=== PATIENT | male | born 1935 | race Caucasian/White ===

== ENCOUNTER 2021-06-16 08:24 | Observation (INO) | payer MEDICARE, SELFPAY ==
[2021-06-16] VITALS (11 sets, daily range): BP systolic 127–160; BP diastolic 63–77; PULSE 70–83; RESP 16–20; TEMP 36.3–36.8; O2SAT 82–100; BMI 28.8
--- NOTE | ~2021-06-16 | XR_ITS ---
EXAMINATION: XR chest 1V portable INDICATION: Lower limb weakness TECHNIQUE: Portable AP chest at 0847 hours COMPARISON: None available FINDINGS: Minimal airspace opacities of the left lung base likely reflect atelectasis. There is no pl eural effusion or pneumothorax. The heart size is normal. Changes of prior cardiac valve surgery are noted. IMPRESSION: 1. No acute cardiopulmonary abnormality. Reviewed, dictated and finalized at location A.
--- NOTE | ~2021-06-16 | US_ITS ---
EXAMINATION: US carotid duplex BI DATE: 06/16/2021 12:54 INDICATION: Left hemiparesis TECHNIQUE: Grayscale, color Doppler, and pulsed Doppler images of the cervical carotid arteries were obtained. The degree of vessel stenosis is placed in one of the following categories: normal, <50%, 5 0-69%, >=70% but less than near-occlusion, near-occlusion, or total occlusion. Note that percent sten osis relative to normal distal artery lumen diameter is indirectly measured from velocity measurement s as described by Willy, et al. Radiology 2003; 229:340-346. COMPARISON: None. FINDINGS: RIGHT: The right common carotid artery (CCA) peak systolic velocity (PSV) is 82 cm/s. The right internal car otid artery (ICA) PSV is 91 cm/s. The right ICA end-diastolic velocity (EDV) is 23 cm/s. The right IC A/CCA PSV ratio is 1.1. Grayscale and color Doppler images yield an estimate of <50% diameter reducti on from plaque in the ICA. The external carotid artery (ECA) PSV is 116 cm/s. There is antegrade flow in the right vertebral artery. LEFT: The left CCA PSV is 78 cm/s. The left ICA PSV is 74 cm/s. The left ICA EDV is 20 cm/s. The left ICA/C CA PSV ratio is 0.9. Grayscale and color Doppler images yield an estimate of <50% diameter reduction from plaque in the ICA. The ECA PSV is 95 cm/s. There is antegrade flow in the left vertebral artery. IMPRESSION: 1. <50% stenosis from minimal plaque in the right internal carotid artery. 2. <50% stenosis from minimal plaque in the left internal carotid artery. Reviewed, dictated and finalized at location A.
--- NOTE | ~2021-06-16 | CT_ITS ---
EXAMINATION: CT brain wo con INDICATION: Left arm weakness COMPARISON: None TECHNIQUE: Standard unenhanced head CT. The dose-length product (DLP) was 605.33 mGy-cm. The mA was a djusted according to patient size. Iterative reconstruction technique was employed. FINDINGS: There is no acute intraparenchymal hemorrhage. No evidence of mass lesion. No evidence of a cute infarction. There is mild periventricular and subcortical hypodensity probably related to small vessel ischemic disease. There is mild prominence of the sulci and ventricles related to cerebral atr ophy. Intracranial calcified cerebral atherosclerosis is noted. There are no extra-axial collections. There is no mass effect or midline shift. Changes in the globes are likely from ocular lens surgery. The visualized sinuses and mastoid air cells are well aerated. IMPRESSION: 1. No acute intracranial abnormality. 2. Age related findings. Reviewed, dictated and finalized at location A.
--- NOTE | ~2021-06-16 | MR_ITS ---
EXAMINATION: MR brain/brain stem wo/w con EXAM DATE: 06/17/2021 11:09 INDICATION: Left-sided hemiparesis. Transient ischemic attack. TECHNIQUE: Magnetic resonance imaging (MRI) of the brain/brain stem obtained without contrast. Sagit nicolás T1, axial diffusion, gradient echo (T2*), T1, T2, FLAIR sequences obtained. Patient was then inj ected with 19 cc intravenous Multihance contrast. Axial and coronal postcontrast T1 weighted sequence s obtained. Correlation is made to CTA brain from yesterday. FINDINGS: There are no areas of restricted diffusion to suggest acute infarction. There is no acute hemorrhage seen on the T2*, a hemosiderin sensitive sequence. No intraparenchymal brain mass lesion. There is mild periventricular and subcortical T2/FLAIR signal hyperintensity, nonspecific but probab ly related to small vessel ischemic disease (microangiopathy). There is mild prominence of the sulc i and ventricles related to cerebral atrophy. There are no extra-axial collections. Flow voids are seen in the cerebral arteries on the T2-weighted sequences consistent with their expected patency. The orbits are unremarkable. Soft tissue is unremarkable. IMPRESSION: 1. No acute intracranial findings. 2. Mild age related findings. Reviewed, dictated and finalized at location B.
--- NOTE | ~2021-06-16 | CT_ITS ---
EXAMINATION: CTA brain carotid EXAM DATE: 06/16/2021 12:19 INDICATION: Left-sided hemiparesis. TECHNIQUE: Spiral CTA of the carotid arteries was performed with intravenous injection 100 cc of Omni paque 350. Axial, coronal, sagittal reformatted images reviewed. Additional reformatted images creat ed on dedicated 3-D workstation. NASCET comparable standard used to assess the degree of arterial st enosis. Spiral CT angiogram cerebral arteries performed with the same intravenous injection of contr ast. Source images of the brain CTA transferred to dedicated workstation for 3-D rotational image cre ation. Coronal, sagittal maximum intensity pixel images also reviewed. The dose-length product (DLP ) for this examination was 1285.73 mGy-cm. The exposure was tailored according to patient size, and iterative reconstruction (ASIR) was used as additional dose reduction technique. Comparison is made to prior examination from head CT from earlier same date. FINDINGS: No carotid bulb plaque, 0% stenosis bilaterally. Mild bilateral carotid siphon arterial scl erosis. There is left-sided posterior communicating artery dominant posterior cerebral artery. The le ft vertebral artery is dominant. There is no carotid or vertebral basilar arterial dissection or fib romuscular dysplasia. There are no cerebral artery aneurysms. There is symmetric cerebral artery arbo rization. The sagittal, transverse and sigmoid sinuses enhance normally, no venous sinus thrombosis. Internal cerebral veins also enhance normally. Incidental Findings: There is right thyroid lobe nodule measuring 1.8 cm, could be the same nodule de scribed on an ultrasound in 2008. Sternotomy wires. Cervical spondylosis. IMPRESSION: 1. No acute carotid or intracranial findings. 2. Bilateral carotid 0% stenosis. Reviewed, dictated and finalized at location B.
--- NOTE | 2021-06-16 08:39 | ECG_ITS ---
SINUS RHYTHM DELAYED PRECORDIAL R/S TRANSITION MINIMAL Q WAVES- INFERIOR LEADS BORDERLINE ST-T WAVE ABNORMALITY- HIGH LATERAL LEADS BASELINE ARTIFACT- I, II, AVR, AVL, AVF, V1-V6 BORDERLINE ECG Electronically Signed On 06-16-2021 8:51:12 CDT by Raul PERAZA
--- NOTE | 2021-06-16 08:47 | PC.NURSE ---
BLOOD GLUCOSE WAS 109 AT 08:47
[2021-06-16 08:52] LABS: Basophils Percent Auto 0.4 % (0.2-1.2); Eosinophils Absolute Auto 0.1 K/mm3 (0-0.3); Eosinophils Percent Auto 2.8 % (0-4.4); Hematocrit 42.9 % (42.0-52.0); Hemoglobin 14.2 g/dL (14.0-18.0); Immature Granulocyte Absolute 0.06 K/mm3 (0.00-0.031); Immature Granulocyte Percent A 1.2 % (0-0.5); Lymphocytes Absolute Auto 1.93 K/mm3 (0.9-3.2); Lymphocytes Percent Auto 37.9 % (18.3-44.2); Mean Corpuscular HGB Conc 33.1 g/dl (32-36); Mean Corpuscular Hemoglobin 31.8 pg (26-34); Mean Platelet Volume 11.6 fl (7.4-10.4); Monocytes Absolute Auto 0.5 K/mm3 (0.1-0.6); Neutrophils Absolute Auto 2.5 K/mm3 (1.3-6.7); Neutrophils Percent Auto 48.7 % (45.5-73.1); Platelet Count Result 196 k/mm3 (150-375); Red Blood Count 4.47 M/mm3 (4.6-6.20); Red Cell Distribution Width 11.8 % (11.5-14.5); White Blood Count 5.1 K/mm3 (4.5-10.0)
[2021-06-16 09:03] LABS: Anion Gap 15 mmol/L (8-16); Blood Urea Nitrogen 26 mg/dL (9-20); Carbon Dioxide 21 mmol/L (22-30); Chloride 106 mmol/L (98-107); Estimated CRCL calculation 52 ml/min; Estimated Glomerular Filt Rate 58; Glucose 115 mg/dL (65-110); Potassium 4.2 mmol/L (3.4-5.0); Sodium 142 mmol/L (137-145)
[2021-06-16 09:10] LABS: Partial Thromboplastin Time 28.8 SECONDS (22.3-36.8); Prothrombin Time 12.9 Seconds (11.1-14.7)
[2021-06-16 09:15] LABS: Troponin I < 0.012 ng/mL (0.000-0.034)
[2021-06-16 09:22] LABS: Glucose Point of Care 109 mg/dl (65-105)
--- NOTE | 2021-06-16 11:05 | ED.GENADULT ---
HPI - General Adult General Chief complaint: Neuro Symptoms/Deficit Stated complaint: I think I'm having a stroke Time Seen by Provider: 06/16/21 09:53 History of Present Illness HPI narrative: Patient 85-year-old gentleman who presents the emergency department chief complaint of TIA symptoms. The patient reports that over the last several days has been having intermittent episodes where he develops weakness usually in extremity patient states that last for about an hour or so and then he takes his aspirin and then it starts to improve. Patient states he saw his primary care physician in the office and they recommended that the next time he has an episode he should go to the emergency department. Patient states this morning he woke up at 7:00 and at 730 he started having weakness in his left arm. Patient states that it has been rapidly improving and states that his strength is almost back to normal. The patient states that he had no paresthesias reports no weakness in his leg reports no dysarthria or problems with his speech. 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 Related Data Allergies Allergy/AdvReac Type Severity Reaction Status Date / Time No Known Allergies Allergy Verified 06/16/21 08:37 Review of Systems Review of Systems: A 10 system review of systems was completed on the patient and is negative except for what is stated in the HPI. Nursing and ancillary documentation was reviewed. [facility] Family History Family History Father Family history of coronary artery disease, Onset Age: 55 Patient's father is , Onset Age: 55 Social History Social History Smoking status: Former smoker Smoking end date: 10/02/1955 Alcohol intake: current Exam Narrative: GENERAL: Well-appearing, well-nourished, and in no acute distress. HEAD: Normocephalic, atraumatic. EYES: PERRLA and EOMI. ENT: Nares clear, no rhinorrhea or epistaxis. Mucous membranes moist. NECK: Supple. CHEST: Clear to auscultation. No respiratory distress. HEART: Regular rate and rhythm. No murmur heard. Normal peripheral pulses. ABDOMEN: Soft, nontender, nondistended, normal active bowel sounds. EXTREMITIES: Normal range of motion. No edema. SKIN: Warm, dry, no rash. NEURO: No focal deficits. Alert and oriented x3. PSYCH: Normal mood and affect. Course Vital Signs Vital signs: Vital Signs Temperature 36.3 C L 06/16/21 08:30 Pulse Rate 80 06/16/21 08:30 Respiratory Rate 16 06/16/21 08:30 Blood Pressure 149/76 H 06/16/21 08:30 Pulse Oximetry 98 06/16/21 08:30 Temperature 36.3 C L 06/16/21 08:30 Pulse Rate 70 06/16/21 09:01 Respiratory Rate 17 06/16/21 09:01 Blood Pressure 139/72 06/16/21 09:01 Pulse Oximetry 98 06/16/21 08:47 Medical Decision Making Vital Signs Vital Signs: Vital Signs Temperature 36.3 C L 06/16/21 08:30 Pulse Rate 80 06/16/21 08:30 Respiratory Rate 16 06/16/21 08:30 Blood Pressure 149/76 H 06/16/21 08:30 Pulse Oximetry 98 06/16/21 08:30 Temperature 36.3 C L 06/16/21 08:30 Pulse Rate 70 06/16/21 09:01 Respiratory Rate 17 06/16/21 09:01 Blood Pressure 139/72 06/16/21 09:01 Pulse Oximetry 98 06/16/21 08:47 Lab Data Result diagrams: 06/16/21 08:43 06/16/21 08:43 Labs: Lab Results 06/16/21 06/16/21 06/16/21 Range/Units 08:43 08:43 08:43 WBC 5.1 (4.5-10.0) K/mm3 RBC 4.47 L (4.6-6.20) M/mm3 Hgb 14.2 (14.0-18.0) g/dL Hct 42.9 (42.0-52.0) % MCV 96.0 (80-100) fl MCH 31.8 (26-34) pg MCHC 33.1 (32-36) g/dl RDW 11.8 (11.5-14.5) % Plt Count 196 (150-375) k/mm3 MPV 11.6 H (7.4-10.4) fl Immature Gran % (Auto) 1.2 H (0-0.5) % Neut %
--- NOTE | 2021-06-16 17:11 | PM.IMHP ---
H&P: HPI History of Present Illness Date/Time: 06/16/21 17:11 this is a 85-year-old male patient who stated that he has a history of TIAs. The patient has increased his low-dose aspirin to a full dose aspirin. The patient stated over the last few days he has been having intermittent episodes where he develops weakness to the left extremity that last about an hour so and then it goes away specially after he takes his aspirin. The patient stated he had a previous episode approximately 1 week ago. One week ago he saw his primary care doctor and he recommended that the next time he has an episode to come to the emergency room. The patient woke up around 7 or 730 this morning was having weakness to his left arm. This symptoms have now resolved and is essentially back to his baseline. The patient no longer has any weakness to that left side. He is able to move that arm without any difficulty. His speech is clear. 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 Patient's blood sugars 115 troponin is negative. Carotid Dopplers was read as.1. <50% stenosis from minimal plaque in the right internal carotid artery. 2. <50% stenosis from minimal plaque in the left internal carotid artery . Head neck CTA was read as no acute carotid or intracranial findings. Bilateral carotid 0% stenosis. Head CT is read as no acute intracranial abnormality. age-related findings The patient is being admitted to observation status on the date of service of 06/16/2021. Chief Complaint: Left arm weakness Review of Systems Review of Systems: All systems reviewed & are unremarkable except as noted in HPI and below Constitutional: Constitutional: Reports as per HPI and Reports no additional constitutional complaints Eyes: Eyes: Reports as per HPI and Reports no additional eye complaints ENT: Reports system reviewed and no additional complaints, except as documented and Reports Normal hearing present Cardiovascular: Cardiovascular: Reports no additional cardiovascular complaints Respiratory: Respiratory: Reports no additional respiratory complaints and Reports no additional respiratory complaints Gastrointestinal: Gastrointestinal: Reports as per HPI and Reports no additional gastrointestinal complaints Musculoskeletal: Musculoskeletal: Reports no additional musculoskeletal complaints Integumentary/Breasts: Skin/Breast: Reports system reviewed and no additional complaints, except as docu and Reports as per HPI Neurologic: Reports system reviewed and no additional complaints, except as documented, Reports as per HPI and Reports Normal hearing present Psychiatric: Psychiatric: Reports no additional psychiatric complaints and Reports as per HPI Endocrine: Endocrine: Reports no additional endocrine complaints Hematologic/Lymphatic: Hematologic/Lymphatic: Reports no additional hematologic/lymphatic complaints Allergic/Immunologic: Allergic/Immunologic: Reports no additional allergic/immunologic complaints PMFSH Past Medical History Medical History (Updated 06/16/21 @ 17:19 by Alina Hauser NP) BPH w/o urinary obs/LUTS Hypertension Mixed hyperlipidemia Surgical History Surgical History (Updated 06/16/21 @ 17:19 by Alina Hauser NP) H/O aortic valve replacement Biosynthetic bovine H/O hernia repair H/O repair of left rotator cuff History of cataract extraction with lens replacement Family History Family History (Updated 06/16/21 @ 17:21 by Alina Hauser NP) Father Family history of coronary artery disease, Onset Age: 55 Patient's father is , Onset Age: 55 Mother Dementia Social History Social History (Updated 06/16/21 @ 17:22 by Alina Hauser NP) Social History: The patient is retired from being a food quality tester. He worked for [employer]. His is the durable power insurance defense attorney for healthcare and
[2021-06-17] VITALS (8 sets, daily range): BP systolic 132–148; BP diastolic 63–76; PULSE 67–80; RESP 17–20; TEMP 36.3–36.7; O2SAT 95–96
--- NOTE | 2021-06-17 | ECHO_ITS ---
Patient Info Name: Nick Figueroa Age: 85 years : 1935 Gender: Male Ht: 72 in Wt: 229 lbs BSA: 2.32 m2 HR: 77 bpm BP: 151 / 77 mmHg Heart Rhythm: Sinus Rhythm Technical Quality: Good Exam Date: 06/17/2021 3:42 PM Exam Location: [facility] Pulmonary Exam Room: 240 Patient Status: Outpatient Admit Date: 06/16/2021 Staff Ordering Physician: Alina Hauser NP Wireless Field Technician: Criss Valdez RDCS Attending Provider: Butch Newell MD Referring Physician: Analisa MULLER; Exam Type: CA echo dop bubble study w con Study Info Indications - TIA S/P AVR Complete two-dimensional, color flow and Doppler transthoracic echocardiogram is performed with agitated saline. Summary 1. Left ventricular chamber dimension is normal. 2. Left ventricular systolic function is normal, estimated at 60-65%. 3. There is mildly increased left ventricular wall thickness. 4. The left ventricular diastolic function is grade I diastolic dysfunction. 5. Right atrial chamber dimension is mildly enlarged. 6. Left atrial chamber dimension is mildly enlarged. 7. Within the left atrium, there is a small echogenicity seen. It is not clearly attached to the mitral valve but not also clearly delineated as to its origin or relevance. Consider AGATHA for clarification. 8. The mitral valve has thickened leaflets. 9. There is mild tricuspid valve regurgitation. Left Ventricle Left ventricular chamber dimension is normal. Left ventricular systolic function is normal, estimated at 60-65%. There is mildly increased left ventricular wall thickness. The left ventricular diastolic function is grade I diastolic dysfunction. Right Ventricle Right ventricular chamber dimension is normal. Right ventricular systolic function is normal. Left Atria Left atrial chamber dimension is mildly enlarged. Within the left atrium, there is a small echogenicity seen. It is not clearly attached to the mitral valve but not also clearly delineated as to its origin or relevance. Consider AGATHA for clarification. Right Atria Right atrial chamber dimension is mildly enlarged. Atrial Septum Intact interatrial septum visualized by color flow and agitated saline imaging. Aortic Valve The not well visualized prosthetic aortic valve is not well visualized. There is trace regurgitation of the not well visualized prosthetic aortic valve. Bioprosthetic Aortic valve gradients are normal. Pulmonic Valve The pulmonic valve is normal. There is no pulmonic valve stenosis. There is trace pulmonic regurgitation. Mitral Valve The mitral valve has thickened leaflets. There is no mitral valve stenosis. There is trace mitral valve regurgitation. Tricuspid Valve The tricuspid valve leaflets are normal. There is no significant tricuspid valve stenosis. There is mild tricuspid valve regurgitation. No pulmonary hypertension, estimated pulmonary arterial systolic pressure is 23 mmHg. Pericardium/Pleural The pericardium appears normal. There is trivial pericardial effusion. Inferior Vena Cava Normal inferior vena cava with <50% collapse upon inspiration consistent with elevated right atrial pressure, 10 mmHg. Aorta The aortic root size at the sinus of Valsalva is normal. Left Ventricular Outflow Tract Name Value Normal LVOT 2D -
[2021-06-17] MEDS: LEVOTHYROXINE SODIUM 150 MCG TABLET PO (05:53)
[2021-06-17 06:00] LABS: Lactic Acid Reflex 0.7 mmol/L (0.7-2.1)
[2021-06-17 06:05] LABS: Alanine Aminotransferase 21 U/L (4-50); Albumin Level 4.1 g/dL (3.5-5.1); Alkaline Phosphatase 48 U/L (38-126); Anion Gap 8 mmol/L (8-16); Aspartate Amino Transferase 23 U/L (17-59); Bilirubin,Total 0.6 mg/dL (0.2-1.3); Blood Urea Nitrogen 25 mg/dL (9-20); Calcium 9.2 mg/dL (8.4-10.2); Carbon Dioxide 25 mmol/L (22-30); Chloride 107 mmol/L (98-107); Estimated CRCL calculation 47 ml/min; Estimated Glomerular Filt Rate 58; Glucose 100 mg/dL (65-110); Lactate Dehydrogenase 433 U/L (313-618); Magnesium 2.2 mg/dL (1.6-2.3); Potassium 3.9 mmol/L (3.4-5.0); Sodium 140 mmol/L (137-145)
[2021-06-17] MEDS: ATORVASTATIN 20 MG TABLET BY MOUTH (08:55)
[2021-06-17] MEDS: gemfibroziL 600 MG TABLET PO ×2 (08:56→17:08)
[2021-06-17] MEDS: lisinopriL 20 MG TABLET 40 MG PO (08:56)
[2021-06-17] MEDS: TAMSULOSIN HCL 0.4 MG CAPSULE 0.8 MG PO ×2 (08:56→17:08)
[2021-06-17] MEDS: amLODIPine BESYLATE 5 MG TABLET 10 MG BY MOUTH (09:56)
--- NOTE | 2021-06-17 10:57 | WPDNEURCNPN ---
Assessment and Plan Additional Plan considering history and symptomatology possibility of TIA likely Doppler study with the bubble study has been ordered further recommendations made accordingly Consult date: 06/17/21 Time Seen: 10:00 HPI: Nick Figueroa is a 85 year old male 85 years old right-handed male has been admitted to [facility] for the possibility of TIA over the last few days he has been experiencing intermittent episodes of the weakness of left extremity lasting for anywhere about an hour and then going awake he takes aspirin which she has increased by himself to full dose from the low-dose aspirin he had a previous episode approximately 1 week ago when he saw his primary care physician who recommended that if he has another episode come to the emergency room around 730 in the morning he was having weakness of his left upper extremity with subsequently resolved to baseline his speech was clear he does have a history of by a synthetic wall replacement that is bovine and is not on any anticoagulation therapy his blood sugar was reportedly 115 and the carotid studies have been read less than 50% stenosis with minimal plaque formation in the right internal carotid artery but head neck CTA was read without any abnormalities bilateral carotid 0% stenosis, additionally he does have a history of benign prostatic hypertrophy, hypertension and mixed hyperlipidemia in addition to the positive history of aortic valve replacement with by a synthetic bovine valve hernia repair left rotator cuff repair and cataract extraction Review of Systems Review of Systems: All systems reviewed & are unremarkable except as noted in HPI and below PMFSH Past Medical History Medical History BPH w/o urinary obs/LUTS Hypertension Mixed hyperlipidemia Surgical History Surgical History H/O aortic valve replacement Biosynthetic bovine H/O hernia repair H/O repair of left rotator cuff History of cataract extraction with lens replacement Family History Family History Father Family history of coronary artery disease, Onset Age: 55 Patient's father is , Onset Age: 55 Mother Dementia Social History Social History Social History: The patient is retired from being a food preparation worker. He worked for [employer]. His is the durable power golf teacher for healthcare and the patient is full code. The patient has 2 children. Occasional alcohol. No tobacco or illicit drugs. Smoking status: Never smoker Smoking end date: 10/02/1955 Alcohol intake: current Drinks per week: 4 Substance use: never Spiritual care concerns: No Meds Home Medications and Allergies Home Medications Medication Instructions Recorded Confirmed Type tamsulosin 0.4 mg capsule 0.8 mg PO BID #180 cap 12/10/19 06/16/21 Rx amlodipine 10 mg tablet See Rx Instructions .ROUTE 08/24/20 06/16/21 Rx .COMPLEX #90 tablet gemfibrozil 600 mg tablet 600 mg PO BID #180 tablet 04/08/21 06/16/21 Rx levothyroxine 150 mcg tablet 150 mcg PO DAILY #90 tablet 04/22/21 06/16/21 Rx lisinopril 40 mg tablet 40 mg PO DAILY #90 tablet 05/24/21 06/16/21 Rx atorvastatin 20 mg tablet See Rx Instructions .ROUTE 06/14/21 06/16/21 Rx .COMPLEX #90 tablet aspirin 650 mg PO BID 06/16/21 06/16/21 History coQ10 (ubiquinol) 100 mg PO BID 06/16/21 06/16/21 History Allergies Allergy/AdvReac Type Severity Reaction Status Date / Time No Known Allergies Allergy Verified 06/16/21 08:37 Vital Signs Vital Signs - 24 hr 06/16/21 13:30 06/16/21 14:32 06/16/21 15:02 Temperature Pulse Rate 71 83 75 Respiratory Rate 16 17 20 Blood Pressure 132/76 148/75 H 135/63 Pulse Oximetry 98 82 L 95 06/16/21 16:30 06/16/21 17:15 06/16/21 18:00 Temperature 36.8 C 36.3 C L Pulse Rat
--- NOTE | 2021-06-17 16:48 | P.PNIM_ITS ---
Progress Note: A&P Assessment and Plan (1) Brain TIA: Code(s): G45.9 - Transient cerebral ischemic attack, unspecified Status: Acute Assessment and Plan: * Patient has had symptoms the past * CT of the brain shows nothing acute * Brain MRI shows nothing acute put age-related findings * Neurology consult thank you for your recommendations * Echo Doppler did show echogenicities in the left atrium * Cardiac consult syncope recommendations * Carotid ultrasound showed less than 50% stenosis * Consider adding anticoagulation prior to discharge (2) Mixed hyperlipidemia: Code(s): E78.2 - Mixed hyperlipidemia Status: Chronic Assessment and Plan: * Continue with atorvastatin * Cholesterol 157, triglycerides 166, LDL 80, HDL 49, VLDL 28 (3) BPH w/o urinary obs/LUTS: Code(s): N40.0 - Benign prostatic hyperplasia without lower urinary tract symptoms Status: Chronic Assessment and Plan: * Continue with tamsulosin * Monitor urine output * Consider bladder scan if needed (4) Hypertension: Code(s): I10 - Essential (primary) hypertension Status: Chronic Assessment and Plan: * Current blood pressure 132/63 * Continue with lisinopril and amlodipine * Trend blood pressure * Adjust medications as needed (5) Hypothyroidism (acquired): Code(s): E03.9 - Hypothyroidism, unspecified Status: Chronic Assessment and Plan: * Continue with levothyroxine * TSH 2.5 (6) S/P aortic valve replacement: Code(s): Z95.2 - Presence of prosthetic heart valve Status: Acute Assessment and Plan: * This is a biosynthetic bovine * not on any anticoagulation. * Could possibly need anticoagulation upon discharge (7) Chronic kidney disease, stage II (mild): Code(s): N18.2 - Chronic kidney disease, stage 2 (mild) Status: Chronic Assessment and Plan: * Current BUN and creatinine 25/1.2 * Down since admission * At baseline * Continue to trend Time Spent With Patient Time with patient: Greater than 35 minutes Subjective Date/time seen: 06/17/21 16:48 Interval history: Patient 85-year-old male who is here for stroke-like symptoms. Patient stated that he feels better today he has had no episodes and he feels like play golf or mow the grass. He denies she chest pain, shortness of breath, weakness, fatigue, nausea, vomiting, abdominal pain, sweats fevers or chills. I talked to patient about not taking 650 mg of aspirin b.i.d. which he stated he started doing on his own. MRI of the brain came back with no acute findings or chronic findings. Carotids came back with less than 50% stenosis. And echo did show abnormality in the mitral valve cardiology is consulted for possible AGATHA. Review of Systems Review of Systems: All systems reviewed & are unremarkable except as noted in HPI and below Exam Const: General: cooperative, healthy appearing, comfortable, no acute distress, well developed, alert, awake and Physically active Nutritional Appearance: average body habitus and well nourished Orientation/consciousn ess: oriented to person, oriented to place, oriented to time and patient oriented x3 Limitations: no limitations HENMT: Head: normal to inspection, No palpable skull fracture present, normocephalic and atraumatic Ears: hearing grossly normal bilaterally and external ears normal General
--- NOTE | 2021-06-17 16:48 | PM.IMPN ---
Progress Note: A&P Assessment and Plan (1) Brain TIA: Code(s): G45.9 - Transient cerebral ischemic attack, unspecified Status: Acute Assessment and Plan: Patient has had symptoms the past CT of the brain shows nothing acute Brain MRI shows nothing acute put age-related findings Neurology consult thank you for your recommendations Echo Doppler did show echogenicities in the left atrium Cardiac consult syncope recommendations Carotid ultrasound showed less than 50% stenosis Consider adding anticoagulation prior to discharge (2) Mixed hyperlipidemia: Code(s): E78.2 - Mixed hyperlipidemia Status: Chronic Assessment and Plan: Continue with atorvastatin Cholesterol 157, triglycerides 166, LDL 80, HDL 49, VLDL 28 (3) BPH w/o urinary obs/LUTS: Code(s): N40.0 - Benign prostatic hyperplasia without lower urinary tract symptoms Status: Chronic Assessment and Plan: Continue with tamsulosin Monitor urine output Consider bladder scan if needed (4) Hypertension: Code(s): I10 - Essential (primary) hypertension Status: Chronic Assessment and Plan: Current blood pressure 132/63 Continue with lisinopril and amlodipine Trend blood pressure Adjust medications as needed (5) Hypothyroidism (acquired): Code(s): E03.9 - Hypothyroidism, unspecified Status: Chronic Assessment and Plan: Continue with levothyroxine TSH 2.5 (6) S/P aortic valve replacement: Code(s): Z95.2 - Presence of prosthetic heart valve Status: Acute Assessment and Plan: This is a biosynthetic bovine not on any anticoagulation. Could possibly need anticoagulation upon discharge (7) Chronic kidney disease, stage II (mild): Code(s): N18.2 - Chronic kidney disease, stage 2 (mild) Status: Chronic Assessment and Plan: Current BUN and creatinine 25/1.2 Down since admission At baseline Continue to trend Time Spent With Patient Time with patient: Greater than 35 minutes Subjective Date/time seen: 06/17/21 16:48 Interval history: Patient 85-year-old male who is here for stroke-like symptoms. Patient stated that he feels better today he has had no episodes and he feels like play golf or mow the grass. He denies she chest pain, shortness of breath, weakness, fatigue, nausea, vomiting, abdominal pain, sweats fevers or chills. I talked to patient about not taking 650 mg of aspirin b.i.d. which he stated he started doing on his own. MRI of the brain came back with no acute findings or chronic findings. Carotids came back with less than 50% stenosis. And echo did show abnormality in the mitral valve cardiology is consulted for possible AGATHA. Review of Systems Review of Systems: All systems reviewed & are unremarkable except as noted in HPI and below Exam Const: General: cooperative, healthy appearing, comfortable, no acute distress, well developed, alert, awake and Physically active Nutritional Appearance: average body habitus and well nourished Orientation/consciousness: oriented to person, oriented to place, oriented to time and patient oriented x3 Limitations: no limitations HENMT: Head: normal to inspection, No palpable skull fracture present, normocephalic and atraumatic Ears: hearing grossly normal bilaterally and external ears normal General nose exam: Normal external nose present and Normal nares present Eyes: General: appearance normal, both eyes and all related structures Alignment and Position: alignment normal Periorbital: periorbital findings normal Eyelids: eyelids normal Conjunctivae: conjunctivae normal Pupils: Equal, round and reactive pupils present EOM: EOMs intact bilaterally Neck: Neck: normal visual inspection and full ROM Chest: Chest palpation & inspection: normal inspection of the chest Resp: Effort & Inspection: normal respiratory
[2021-06-18] VITALS (15 sets, daily range): BP systolic 95–147; BP diastolic 52–80; PULSE 66–86; RESP 14–18; TEMP 36.2–36.3; O2SAT 92–98
--- NOTE | 2021-06-18 | ECHO_ITS ---
Patient Info Name: Nick Figueroa Age: 85 years : 1935 Gender: Male Ht: 73 in Wt: 218 lbs BSA: 2.28 m2 HR: 74 bpm BP: 144 / 78 mmHg Heart Rhythm: Sinus Rhythm Technical Quality: Good Exam Date: 06/18/2021 1:29 PM Exam Location: [facility] Pulmonary Exam Room: CATHLAB Patient Status: Inpatient Admit Date: 06/16/2021 Staff Ordering Physician: Vineet Ames MD Hoe Runner: Criss Valdez RDCS Attending Provider: Butch Newell MD Referring Physician: Kwaku BRENNER; Exam Type: CA echo transesophageal Study Info Indications - TIA Complete two-dimensional, color flow and Doppler transesophageal study is performed. Contrast/Agitated Saline Contrast/Ag. Saline: Agitated Saline Amount: 20.00 ml Existing IV Access: Yes Summary 1. Transesophageal echocardiogram done to exclude left atrial mass which was questioned on TTE. 2. No evidence of left atrial mass identified. Left Ventricle Left ventricular chamber dimension is normal. Left ventricular systolic function is normal with an ejection fraction by Biplane Method of Discs of Empty. Right Ventricle Right ventricular chamber dimension is normal. Left Atria Left atrial chamber dimension is mildly enlarged. There is no mass visualized in the left atrium. Right Atria Right atrial chamber dimension is normal. Atrial Septum Intact interatrial septum visualized by agitated saline imaging. 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 There is trace regurgitation of the prosthetic aortic valve. Pulmonic Valve The pulmonic valve is normal. Mitral Valve The mitral valve has normal leaflets. Tricuspid Valve The tricuspid valve leaflets are normal. Pericardium/Pleural The pericardium appears normal. Inferior Vena Cava Not well visualized inferior vena cava with Empty collapse upon inspiration consistent with Empty right atrial pressure, Empty. Aorta The aortic root size at the sinus of Valsalva is normal. Report Signatures
[2021-06-18 05:53] LABS: Basophils Percent Auto 0.3 % (0.2-1.2); Eosinophils Absolute Auto 0.1 K/mm3 (0-0.3); Hemoglobin 12.7 g/dL (14.0-18.0); Immature Granulocyte Absolute 0.06 K/mm3 (0.00-0.031); Lymphocytes Absolute Auto 1.56 K/mm3 (0.9-3.2); Mean Corpuscular HGB Conc 33.4 g/dl (32-36); Mean Corpuscular Hemoglobin 31.7 pg (26-34); Mean Corpuscular Volume 94.8 fl (80-100); Mean Platelet Volume 11.5 fl (7.4-10.4); Monocytes Absolute Auto 0.6 K/mm3 (0.1-0.6); Monocytes Percent Auto 9.3 % (2.6-8.5); Neutrophils Absolute Auto 3.7 K/mm3 (1.3-6.7); Neutrophils Percent Auto 61.4 % (45.5-73.1); Platelet Count Result 197 k/mm3 (150-375); Red Blood Count 4.01 M/mm3 (4.6-6.20); Red Cell Distribution Width 11.6 % (11.5-14.5)
[2021-06-18] MEDS: LEVOTHYROXINE SODIUM 150 MCG TABLET PO (05:54)
[2021-06-18 05:59] LABS: Alanine Aminotransferase 18 U/L (4-50); Albumin Level 4.1 g/dL (3.5-5.1); Alkaline Phosphatase 47 U/L (38-126); Anion Gap 8 mmol/L (8-16); Aspartate Amino Transferase 20 U/L (17-59); Bilirubin,Total 0.4 mg/dL (0.2-1.3); Blood Urea Nitrogen 24 mg/dL (9-20); Calcium 9.4 mg/dL (8.4-10.2); Carbon Dioxide 28 mmol/L (22-30); Chloride 106 mmol/L (98-107); Estimated CRCL calculation 44 ml/min; Estimated Glomerular Filt Rate 53; Glucose 109 mg/dL (65-110); Magnesium 2.2 mg/dL (1.6-2.3); Potassium 4.1 mmol/L (3.4-5.0); Sodium 142 mmol/L (137-145)
[2021-06-18] MEDS: ATORVASTATIN 20 MG TABLET BY MOUTH (09:07)
[2021-06-18] MEDS: amLODIPine BESYLATE 5 MG TABLET 10 MG BY MOUTH (09:08)
[2021-06-18] MEDS: lisinopriL 20 MG TABLET 40 MG PO (09:08)
[2021-06-18] MEDS: TAMSULOSIN HCL 0.4 MG CAPSULE 0.8 MG PO (09:08)
[2021-06-18] MEDS: gemfibroziL 600 MG TABLET PO (09:08)
--- NOTE | 2021-06-18 11:47 | WPDNEUROPN ---
Progress Note: A&P Additional Plan further discussion after the AGATHA done Review of Systems Review of Systems: All systems reviewed & are unremarkable except as noted in HPI and below Objective Data Vital Signs Vital Signs: Vital Signs - 24 hr 06/17/21 14:00 06/17/21 16:00 06/17/21 19:12 Temperature 36.3 C L 36.4 C Pulse Rate 69 71 74 Respiratory Rate 20 17 Blood Pressure 132/63 148/76 H Pulse Oximetry 95 96 06/17/21 20:00 06/18/21 00:00 06/18/21 02:55 Temperature 36.2 C L Pulse Rate 74 70 72 Respiratory Rate 17 16 Blood Pressure 105/52 L Pulse Oximetry 96 97 06/18/21 04:00 06/18/21 08:00 06/18/21 10:22 Temperature Pulse Rate 68 69 Respiratory Rate Blood Pressure Pulse Oximetry 97 Intake/Output Intake/Output: Intake & Output 06/15/21 06/16/21 06/17/21 06/18/21 23:59 23:59 23:59 23:59 Intake Total 2180 100 Output Total 2300 500 Balance -120 -400 Meds/Results Medications: Active Medications Generic Name Dose Route Start Last Admin Trade Name Freq PRN Reason Stop Dose Admin Amlodipine Besylate 10 mg 06/17/21 09:00 06/18/21 09:08 Amlodipine Besylate 5 Mg Tablet BY MOUTH 10 mg DAILY J CARLOS Administration Atorvastatin Calcium 20 mg 06/17/21 09:00 06/18/21 09:07 Atorvastatin 20 Mg Tablet BY MOUTH 20 mg DAILY J CARLOS Administration Gemfibrozil 600 mg 06/17/21 09:00 06/18/21 09:08 Gemfibrozil 600 Mg Tablet PO 600 mg BID J CARLOS Administration Levothyroxine Sodium 150 mcg 06/17/21 06:30 06/18/21 05:54 Levothyroxine Sodium 150 Mcg Tablet PO 150 mcg DAILY@0630 J CARLOS Administration Lisinopril 40 mg 06/17/21 09:00 06/18/21 09:08 Lisinopril 20 Mg Tablet PO 40 mg DAILY J CARLOS Administration Non-Formulary Medication 100 mg 06/17/21 09:00 Coq10 (Ubiquinol) PO 07/17/21 08:59 BID J CARLOS Tamsulosin HCl 0.8 mg 06/17/21 09:00 06/18/21 09:08 Tamsulosin Hcl 0.4 Mg Capsule PO 0.8 mg BID J CARLOS Administration Radiology Results: ITS Impressions Chest X-Ray 06/16/21 09:03 IMPRESSION: 1. No acute cardiopulmonary abnormality. Head CT 06/16/21 10:34 IMPRESSION: 1. No acute intracranial abnormality. 2. Age related findings. Head/Neck CTA 06/16/21 12:23 IMPRESSION: 1. No acute carotid or intracranial findings. 2. Bilateral carotid 0% stenosis. Carotid Doppler Study 06/16/21 12:55 IMPRESSION: 1. <50% stenosis from minimal plaque in the right internal carotid artery. 2. <50% stenosis from minimal plaque in the left internal carotid artery. Brain MRI 06/17/21 11:12 IMPRESSION: 1. No acute intracranial findings. 2. Mild age related findings. Labs Labs: Laboratory Results - last 24 hr 06/18/21 06/18/21 04:41 04:41 WBC 6.0 RBC 4.01 L Hgb 12.7 L Hct 38.0 L MCV 94.8 MCH 31.7 MCHC 33.4 RDW 11.6 Plt Count 197 MPV 11.5 H Immature Gran % (Auto) 1.0 H Neut % (Auto) 61.4 Lymph % (Auto) 26.0 Murray % (Auto) 9.3 H Eos % (Auto) 2.0 Baso % (Auto) 0.3 Lymph # (Auto) 1.56 Murray # (Auto) 0.6 Eos # (Auto) 0.1 Baso # (Auto) 0.0 Abs Immat Gran (auto) 0.06 H Absolute Neuts (auto) 3.7 Absolute Nucleated RBC 0.0 Nucleated RBC % 0.0 Sodium 142 Potassium 4.1 Chloride 106 Carbon Dioxide 28 Anion Gap 8 BUN 24 H Creatinine 1.30 Estim Creat Clear Calc 44 Estimated GFR 53 L Glucose 109 Calcium 9.4 Magnesium 2.2 Total Bilirubin 0.4 AST 20 ALT 18 Alkaline Phosphatase 47 Total Protein 7.0 Albumin 4.1 Quality VTE Prophylaxis VTE prophylaxis: mechanical ordered
--- NOTE | 2021-06-18 11:51 | PM.CNCAR ---
Assessment and Plan Additional Plan this is an 85-year-old man with: Transient episodes that sound like cerebral ischemia with several episodes beginning about 2 weeks ago. He has no history of atrial fibrillation nor any evidence of atrial dilatation or mitral valve disease. 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 His aortic valve is functioning normally from what we see on the Doppler exam. The echocardiogram does raise question as to the presence of a left atrial mass. The lesion is not well seen and in fact may be artifactual in nature. Because of his symptoms however in this question a transesophageal echo I believe is indicated I will make arrangements to do that shortly this afternoon. Vineet Ames MD [facility] History of Present Illness History of Present Illness Consult date/time: 06/18/21 11:51 Reason For Visit: TIA Narrative: this is a pleasant 85-year-old man who I know from office follow-up because of aortic valve disease. I am asked to see him at the request of the hospitalist today because of a question that has been raised on a transthoracic echo that there may be a masslike lesion in his left atrium. The patient is not known to have any history like this. He does carry the diagnosis of aortic valve stenosis which I followed as an outpatient for a while and it became severe, symptomatic and critical in November of 2018. He underwent evaluation and was referred to Cardiothoracic surgery at [facility] where he underwent bioprosthetic aortic valve replacement. He has done well following his aortic valve recovery placement I last saw this gentleman in the office in March of this year which he had no cardiovascular complaints. He has no history of atrial fibrillation or mitral valve disease. He was feeling well until a couple of weeks ago when he started to have episodes that sound like transient cerebral ischemia. The 1st episode he describes is some weak motor control of the right upper extremity. Shortly after that a few days later he had some episodes of weakness of his neck where he said his head was flopping around for a few minutes. Following that he went to see his primary care physician who states that he should have gone to the emergency room when this happened. Another episode happened earlier this week so he did come to the emergency room. The 3rd episode that prompted this admission was with motor weakness of the left upper and lower extremity. Neurology consultation has been obtained according to the patient he has had CT and MRI of the brain with favorable results. He is intact neurologically at this time has no cardiovascular complaints or concerns. As part of this workup a echocardiogram was done which demonstrates normal left ventricular systolic function, normal my appearing mitral valve and left atrial size. His aortic valve bioprosthesis appears to be normal and is functioning well. There is also that a question of the report as to whether there is a masslike lesion versus an artifact in the left atrium. Review of Systems Constitutional: Constitutional: Reports no additional constitutional complaints Eyes: Eyes: Reports no additional eye complaints ENT: Reports system reviewed and no additional complaints, except as documented Cardiovascular: Cardiovascular: Reports no additional cardiovascular complaints Respiratory: Respiratory: Reports no additional respiratory complaints Gastrointestinal: Gastrointestinal: Reports no additional gastrointestinal complaints Musculoskeletal: Musculoskeletal: Reports as per HPI Integumentary/Breasts: Skin/Breast: Reports system reviewed and no additional complaints, except as docu Neurologic: Reports as per HPI Psychiatric: Psychiatric: Reports no additional psychiatric complaints Endocrine: Endocrine: Reports no additional endocrine complaints
--- NOTE | 2021-06-18 14:04 | WPDMODSED ---
Moderate Sedation Note-Pt Data Patient Data Diagnosis: recent TIAs Present Complaint: none Procedure to be performed/Plan: transesophageal echocardiogram Allergies Allergy/AdvReac Type Severity Reaction Status Date / Time No Known Allergies Allergy Verified 06/16/21 08:37 Home Medications Medication Instructions Recorded Confirmed Type tamsulosin 0.4 mg capsule 0.8 mg PO BID #180 cap 12/10/19 06/16/21 Rx amlodipine 10 mg tablet See Rx Instructions .ROUTE 08/24/20 06/16/21 Rx .COMPLEX #90 tablet gemfibrozil 600 mg tablet 600 mg PO BID #180 tablet 04/08/21 06/16/21 Rx levothyroxine 150 mcg tablet 150 mcg PO DAILY #90 tablet 04/22/21 06/16/21 Rx lisinopril 40 mg tablet 40 mg PO DAILY #90 tablet 05/24/21 06/16/21 Rx atorvastatin 20 mg tablet See Rx Instructions .ROUTE 06/14/21 06/16/21 Rx .COMPLEX #90 tablet aspirin 650 mg PO BID 06/16/21 06/16/21 History coQ10 (ubiquinol) 100 mg PO BID 06/16/21 06/16/21 History Current Medications: Active Medications Amlodipine Besylate (Amlodipine Besylate 5 Mg Tablet) 10 mg BY MOUTH DAILY [facility] Last Admin: 06/18/21 09:08 Dose: 10 mg Documented by: Atorvastatin Calcium (Atorvastatin 20 Mg Tablet) 20 mg BY MOUTH DAILY [facility] Last Admin: 06/18/21 09:07 Dose: 20 mg Documented by: Gemfibrozil (Gemfibrozil 600 Mg Tablet) 600 mg PO BID [facility] Last Admin: 06/18/21 09:08 Dose: 600 mg Documented by: Levothyroxine Sodium (Levothyroxine Sodium 150 Mcg Tablet) 150 mcg PO DAILY@0630 [facility] Last Admin: 06/18/21 05:54 Dose: 150 mcg Documented by: Lisinopril (Lisinopril 20 Mg Tablet) 40 mg PO DAILY [facility] Last Admin: 06/18/21 09:08 Dose: 40 mg Documented by: Non-Formulary Medication (Coq10 (Ubiquinol)) 100 mg PO BID [facility] Stop: 07/17/21 08:59 Tamsulosin HCl (Tamsulosin Hcl 0.4 Mg Capsule) 0.8 mg PO BID [facility] Last Admin: 06/18/21 09:08 Dose: 0.8 mg Documented by: Sedation/Anesthesia: No previous sedation/anesthesia problems (including family history). [facility] Past Medical History Medical History BPH w/o urinary obs/LUTS Hypertension Mixed hyperlipidemia Surgical History Surgical History H/O aortic valve replacement Biosynthetic bovine H/O hernia repair H/O repair of left rotator cuff History of cataract extraction with lens replacement Family History Family History Father Family history of coronary artery disease, Onset Age: 55 Patient's father is , Onset Age: 55 Mother Dementia Social History Social History Social History: The patient is retired from being a food service kitchen supervisor. He worked for [employer]. His is the durable power insurance defense attorney for healthcare and the patient is full code. The patient has 2 children. Occasional alcohol. No tobacco or illicit drugs. Smoking status: Never smoker Smoking end date: 10/02/1953 Alcohol intake: current Drinks per week: 4 Substance use: never Spiritual care concerns: No Mod Sed Physical Exam Physical Exam Pre Procedural Exam: Normal: Appearance ( pleasant elderly man no distress), Neck, Throat, Airway, Lungs, Heart Size, Heart Rate, Heart Rhythm, Neuro Exam and Extremities Hours since solid foods: 12 Hours since liquid intake: 12 Mallampati Classification: class II Internal Medicine - PN: Obj Da Vital Signs Vital Signs: Vital Signs - 24 hr 06/17/21 16:00 06/17/21 19:12 06/17/21 20:00 Temperature 36.4 C Pulse Rate 71 74 74 Respiratory Rate 17 17 Blood Pressure 148/76 H Pulse Oximetry 96 96 06/18/21 00:00 06/18/21 02:55 06/18/21 04:00 Temperature 36.2 C L Pulse Rate 70 72 68 Respiratory Rate 16 Blood Pressure 105/52 L Pulse Oximetry 97 06/18/21 08:00 06/18/21 10:22 06/18/21 12:00 Temperature Pulse Rate 69 81 Respiratory Rate Blood Pressure
--- NOTE | 2021-06-18 14:06 | WPDCARDPROC ---
Cardiac Cath Procedure Note Date of procedure:: 06/18/21 Performing physician:: Vineet Ames MD Indication:: rule out left atrial mass Brief clinical history:: this is an 85-year-old man with a history of valvular heart disease having had a bioprosthetic aortic valve replacement 2 years ago. He is doing well clinically and now it is the hospital with several recent TIAs. A transthoracic echo was interpreted as showing a potential mass in the left atrium prompting recommendation for AGATHA Procedure Procedure performed:: transesophageal echocardiogram Sedation/Medication given:: fentanyl 50 mg Versed 4 mg case start time 1:42 p.m. case end time 1:56 p.m. sedation provided by Thalia Romero RN, trained observer Estimated blood loss:: none Procedure note:: patient was in the postabsorptive state and was brought to the cardiac car barn laborer holding area where he was in the supine position. Or pharyngeal benzocaine was used for topical anesthesia and a bite block was then placed. Patient was then sedated using the combination of fentanyl and Versed as above. Patient was well sedated for the procedure the esophagus was intubated with the AGATHA probe and transesophageal echo images were obtained in multi plane of views of the left atrium as well as of the aortic and mitral valves. The septum was also visualized and agitated saline contrast was used to rule out evidence of intracardiac shunting. Following this the aorta was a visualize the descending thoracic aorta as well as the aortic arch. The AGATHA probe was then withdrawn and the patient was recovering uneventfully. Findings:: The left atrium is normal in size the atrium is unremarkable in appearance the appendage is normal in appearance with no evidence of an atrial appendage thrombus. There is no evidence of any mass in the left atrium of any kind. The septum is normal and intact in appearance. Agitated saline contrast demonstrated no evidence of shunting at the level of the septum. The mitral valve leaflets are normal in appearance there is no detectable mitral regurgitation. The left ventricle is normal in size and contractility the ejection fraction is 60-65% by visual estimation. The bioprosthetic aortic valve device appears unremarkable leaflet excursion is nicely maintained there is a trivial jet of central prosthetic AI. Aortic root, aortic arch and descending thoracic aorta are unremarkable there is a small amount of atherosclerosis in the arch but there is no evidence of any mobile atheromatous lesion. The right-sided chambers appear unremarkable there is no pericardial fluid. Conclusion:: 1. Transesophageal echocardiogram done to exclude left atrial mass. There is no mass in the left atrium. 2. No evidence of intracardiac shunt 3. normal sinus rhythm 4. normal left ventricular systolic function 5. no mobile atheromatous lesion in the aorta which would be an embolic source Vineet Ames MD [facility]
--- NOTE | 2021-06-18 15:00 | P.DS_ITS ---
DS: Admitting Diagnosis Discharge Date Date of service is 06/18/2021 at 8 a.m. Admitting Diagnosis TIA DS: Discharge Diagnosis Discharge Diagnosis (1) Brain TIA: Code(s): G45.9 - Transient cerebral ischemic attack, unspecified Status: Acute Assessment and Plan: * Patient has had symptoms the past * CT of the brain shows nothing acute * Brain MRI shows nothing acute put age-related findings * Neurology consult thank you for your recommendations * Echo Doppler did show echogenicities in the left atrium * Cardiac consult syncope recommendations * Carotid ultrasound showed less than 50% stenosis * Consider adding anticoagulation prior to discharge Patient will placed on Plavix and aspirin (2) Mixed hyperlipidemia: Code(s): E78.2 - Mixed hyperlipidemia Status: Chronic Assessment and Plan: * Continue with atorvastatin * Cholesterol 157, triglycerides 166, LDL 80, HDL 49, VLDL 28 (3) BPH w/o urinary obs/LUTS: Code(s): N40.0 - Benign prostatic hyperplasia without lower urinary tract symptoms Status: Chronic Assessment and Plan: * Continue with tamsulosin * Monitor urine output * Consider bladder scan if needed (4) Hypertension: Code(s): I10 - Essential (primary) hypertension Status: Chronic Assessment and Plan: * Current blood pressure 132/63 * Continue with lisinopril and amlodipine * Trend blood pressure * Adjust medications as needed (5) Hypothyroidism (acquired): Code(s): E03.9 - Hypothyroidism, unspecified Status: Chronic Assessment and Plan: * Continue with levothyroxine * TSH 2.5 (6) S/P aortic valve replacement: Code(s): Z95.2 - Presence of prosthetic heart valve Status: Acute Assessment and Plan: * This is a biosynthetic bovine * not on any anticoagulation. * Could possibly need anticoagulation upon discharge (7) Chronic kidney disease, stage II (mild): Code(s): N18.2 - Chronic kidney disease, stage 2 (mild) Status: Chronic Assessment and Plan: * Current BUN and creatinine 25/1.2 * Down since admission * At baseline * Continue to trend DS: Summary Hospital Course Hospital Course: Patient is a an 85-year-old male with a past medical history aortic valve replacement, CAD, and hypertension who presented to the ED with unilateral is weakness. Patient has had this episodes before and was told by his doctor to report to the ER if has anymore. Carotid Doppler showed less than 50% stenosis bilaterally, brain MRI showed no acute findings for chronic age- related findings, CT of the head showed no acute findings, echo did show some echogenicities possible on the mitral valve which led to a AGATHA which was normal. Patient has been ready to go for the last couple days. Neurology had seen the patient as well and would like to follow-up with patient 3 months. Patient states that he feels great and is ready to go. Patient has been about independent in the room. Patient denies chest pain, shortness of breath, weakness, fatigue, and or fevers. Status at Discharge Functional status at discharge: independent ambulation Overall status at discharge: patient is back to baseline Time Spent with Patient Time attestation: Total time spent providing and/or coordinating discharge services: 48 minutes Time spent: Greater than 30 minutes Exam Const: General: cooperative, healthy a
--- NOTE | 2021-06-18 15:00 | PM.DS ---
DS: Admitting Diagnosis Discharge Date Date of service is 06/18/2021 at 8 a.m. Admitting Diagnosis TIA DS: Discharge Diagnosis Discharge Diagnosis (1) Brain TIA: Code(s): G45.9 - Transient cerebral ischemic attack, unspecified Status: Acute Assessment and Plan: Patient has had symptoms the past CT of the brain shows nothing acute Brain MRI shows nothing acute put age-related findings Neurology consult thank you for your recommendations Echo Doppler did show echogenicities in the left atrium Cardiac consult syncope recommendations Carotid ultrasound showed less than 50% stenosis Consider adding anticoagulation prior to discharge Patient will placed on Plavix and aspirin (2) Mixed hyperlipidemia: Code(s): E78.2 - Mixed hyperlipidemia Status: Chronic Assessment and Plan: Continue with atorvastatin Cholesterol 157, triglycerides 166, LDL 80, HDL 49, VLDL 28 (3) BPH w/o urinary obs/LUTS: Code(s): N40.0 - Benign prostatic hyperplasia without lower urinary tract symptoms Status: Chronic Assessment and Plan: Continue with tamsulosin Monitor urine output Consider bladder scan if needed (4) Hypertension: Code(s): I10 - Essential (primary) hypertension Status: Chronic Assessment and Plan: Current blood pressure 132/63 Continue with lisinopril and amlodipine Trend blood pressure Adjust medications as needed (5) Hypothyroidism (acquired): Code(s): E03.9 - Hypothyroidism, unspecified Status: Chronic Assessment and Plan: Continue with levothyroxine TSH 2.5 (6) S/P aortic valve replacement: Code(s): Z95.2 - Presence of prosthetic heart valve Status: Acute Assessment and Plan: This is a biosynthetic bovine not on any anticoagulation. Could possibly need anticoagulation upon discharge (7) Chronic kidney disease, stage II (mild): Code(s): N18.2 - Chronic kidney disease, stage 2 (mild) Status: Chronic Assessment and Plan: Current BUN and creatinine 25/1.2 Down since admission At baseline Continue to trend DS: Summary Hospital Course Hospital Course: Patient is a an 85-year-old male with a past medical history aortic valve replacement, CAD, and hypertension who presented to the ED with unilateral is weakness. Patient has had this episodes before and was told by his doctor to report to the ER if has anymore. Carotid Doppler showed less than 50% stenosis bilaterally, brain MRI showed no acute findings for chronic age-related findings, CT of the head showed no acute findings, echo did show some echogenicities possible on the mitral valve which led to a AGATHA which was normal. Patient has been ready to go for the last couple days. Neurology had seen the patient as well and would like to follow-up with patient 3 months. Patient states that he feels great and is ready to go. Patient has been about independent in the room. Patient denies chest pain, shortness of breath, weakness, fatigue, and or fevers. Status at Discharge Functional status at discharge: independent ambulation Overall status at discharge: patient is back to baseline Time Spent with Patient Time attestation: Total time spent providing and/or coordinating discharge services: 48 minutes Time spent: Greater than 30 minutes Exam Const: General: cooperative, healthy appearing, comfortable, no acute distress, well developed, alert, awake and Physically active Nutritional Appearance: average body habitus and well nourished Orientation/consciousness: oriented to person, oriented to place, oriented to time and patient oriented x3 Limitations: no limitations HENMT: Head: normal to inspection, No palpable skull fracture present, normocephalic and atraumatic Ears: hearing grossly normal bilaterally and external ears normal General nose exam: Normal external nose present an
== END 2021-06-18 16:07 | disposition home or self-care (01) ==
LOC: ANHED 12:17 → ANH2MED 06-17 09:08 → ANH3MEDSUR 06-22 09:23
PROVIDERS: Emergency Medicine; Nurse Practitioner; Specialist; Admitting Provider Internal Medicine; Emergency Provider Emergency Medicine; PCP Internal Medicine; Visit Provider Internal Medicine
PROC: (CPT 93312; principal; 2021-06-18 13:00)
DX: G45.9 Transient cerebral ischemic attack, unspecified (principal); G81.94 Hemiplegia, unspecified affecting left nondominant side; I12.9 Hypertensive chronic kidney disease with stage 1 through stage 4 chronic kidney disease, or unspecified chronic kidney disease; N18.2 Chronic kidney disease, stage 2 (mild); I25.10 Atherosclerotic heart disease of native coronary artery without angina pectoris; E78.5 Hyperlipidemia, unspecified; N40.0 Benign prostatic hyperplasia without lower urinary tract symptoms; E03.9 Hypothyroidism, unspecified; Z86.73 Personal history of transient ischemic attack (TIA), and cerebral infarction without residual deficits; Z95.2 Presence of prosthetic heart valve; Z87.891 Personal history of nicotine dependence
CPT/HCPCS: 36415; 70450; 70496; 70498; 70553; 71045; 80048; 80053; 82728; 82948; 83605; 83615; 83735; 84443; 84484; 85025; 85610; 85730; 93005; 93306; 93312; 93320; 93325; 93880; 96375; 99285; A9270; A9577; G0378; J2250; J3010; J7040; Q9967

== ENCOUNTER 2022-05-19 10:25 | Outpatient (CLI) | payer MEDICARE, SELFPAY ==
[2022-05-19 20:45] LABS: Alanine Aminotransferase 24 U/L (6-50); Albumin Level 4.8 g/dL (3.5-5.1); Alkaline Phosphatase 82 U/L (38-126); Anion Gap 13 mmol/L (8-16); Aspartate Amino Transferase 51 U/L (17-59); Bilirubin,Total 0.6 mg/dL (0.2-1.3); Blood Urea Nitrogen 30 mg/dL (9-20); Carbon Dioxide 25 mmol/L (22-30); Chloride 102 mmol/L (98-107); Cholesterol 137 mg/dL (0-200); Estimated Glomerular Filt Rate 48; Glucose 110 mg/dL (65-110); HDL Direct 38 mg/dL; Potassium 4.3 mmol/L (3.4-5.0); Sodium 140 mmol/L (137-145); Triglycerides 118 mg/dL (<150)
[2022-05-19 20:48] LABS: Thyroid Stimulating Hormone Reflex 0.072 uIU/mL (0.465-4.68)
[2022-05-19 20:56] LABS: LDL Cholesterol Direct 60 mg/dL
[2022-05-19 21:02] LABS: Hemoglobin A1C 5.5 % (<5.7)
[2022-05-19 21:14] LABS: Free T4 Free Thyroxine Reflex 1.43 ng/dL (0.78-2.19)
[2022-05-19 22:05] LABS: Total Triiodothyronine (T3) 0.85 NG/ML (0.97-1.69)
== END 2022-05-19 10:26 | disposition home or self-care (01) ==
LOC: ANHGOSHLAB 10:28
PROVIDERS: PCP Family Medicine; Visit Provider Family Medicine
DX: E78.2 Mixed hyperlipidemia (principal); E03.9 Hypothyroidism, unspecified; R73.09 Other abnormal glucose; I10 Essential (primary) hypertension
CPT/HCPCS: 36415; 80053; 80061; 83036; 84439; 84443; 84480

== ENCOUNTER 2022-07-01 09:07 | Outpatient (CLI) | payer MEDICARE, SELFPAY ==
[2022-07-02 00:21] LABS: Thyroid Stimulating Hormone Reflex < 0.015 uIU/mL (0.465-4.68)
[2022-07-02 00:47] LABS: Free T4 Free Thyroxine Reflex 1.52 ng/dL (0.78-2.19)
[2022-07-02 01:50] LABS: Total Triiodothyronine (T3) 0.94 NG/ML (0.97-1.69)
== END 2022-07-01 09:08 | disposition home or self-care (01) ==
PROVIDERS: PCP Family Medicine; Visit Provider Family Medicine
DX: E03.9 Hypothyroidism, unspecified (principal)
CPT/HCPCS: 36415; 84439; 84443; 84480

== ENCOUNTER 2022-08-11 09:30 | Outpatient (CLI) | payer MEDICARE, SELFPAY ==
[2022-08-11 20:14] LABS: Thyroid Stimulating Hormone Reflex < 0.015 uIU/mL (0.465-4.68)
[2022-08-11 22:52] LABS: Free T4 Free Thyroxine Reflex 1.14 ng/dL (0.78-2.19)
[2022-08-11 23:39] LABS: Total Triiodothyronine (T3) 0.86 NG/ML (0.97-1.69)
== END 2022-08-11 09:31 | disposition home or self-care (01) ==
PROVIDERS: PCP Family Medicine; Visit Provider Family Medicine
DX: E03.9 Hypothyroidism, unspecified (principal)
CPT/HCPCS: 36415; 84439; 84443; 84480

== ENCOUNTER 2022-09-29 12:52 | Outpatient (CLI) | payer MEDICARE, SELFPAY ==
[2022-09-30 11:42] LABS: Thyroid Stimulating Hormone Reflex 0.365 uIU/mL (0.465-4.68)
[2022-09-30 14:02] LABS: Free T4 Free Thyroxine Reflex 1.36 ng/dL (0.78-2.19)
[2022-09-30 15:11] LABS: Total Triiodothyronine (T3) 0.82 NG/ML (0.97-1.69)
== END 2022-09-29 12:53 | disposition home or self-care (01) ==
LOC: ANHGOSHLAB 12:54
PROVIDERS: PCP Family Medicine; Visit Provider Family Medicine
DX: E03.9 Hypothyroidism, unspecified (principal)
CPT/HCPCS: 36415; 84439; 84443; 84480

== ENCOUNTER 2022-11-11 09:56 | Outpatient (CLI) | payer MEDICARE, SELFPAY ==
[2022-11-11 20:17] LABS: Thyroid Stimulating Hormone Reflex 0.313 uIU/mL (0.465-4.68)
[2022-11-11 21:51] LABS: Free T4 Free Thyroxine Reflex 1.06 ng/dL (0.78-2.19)
== END 2022-11-11 09:57 | disposition home or self-care (01) ==
LOC: ANHGOSHLAB 09:57
PROVIDERS: PCP Family Medicine; Visit Provider Family Medicine
DX: Z13.29 Encounter for screening for other suspected endocrine disorder (principal); E03.9 Hypothyroidism, unspecified
CPT/HCPCS: 36415; 84439; 84443; 84480

== ENCOUNTER 2022-12-22 08:30 | Outpatient (CLI) | payer MEDICARE, SELFPAY ==
[2022-12-22 21:05] LABS: Free T4 Free Thyroxine Reflex 1.08 ng/dL (0.78-2.19)
[2022-12-22 21:46] LABS: Total Triiodothyronine (T3) 0.95 NG/ML (0.97-1.69)
== END 2022-12-22 08:31 | disposition home or self-care (01) ==
LOC: ANHGOSHLAB 08:32
PROVIDERS: PCP Family Medicine; Visit Provider Family Medicine
DX: Z13.29 Encounter for screening for other suspected endocrine disorder (principal); E03.9 Hypothyroidism, unspecified
CPT/HCPCS: 36415; 84439; 84443; 84480

== ENCOUNTER 2023-02-02 15:58 | Outpatient (CLI) | payer MEDICARE, SELFPAY ==
[2023-02-02 20:39] LABS: Thyroid Stimulating Hormone Reflex 0.048 uIU/mL (0.465-4.68)
[2023-02-02 22:16] LABS: Free T4 Free Thyroxine Reflex 1.02 ng/dL (0.78-2.19)
[2023-02-03 06:34] LABS: Total Triiodothyronine (T3) 0.91 NG/ML (0.97-1.69)
== END 2023-02-02 15:59 | disposition home or self-care (01) ==
LOC: ANHGOSHLAB 16:01
PROVIDERS: PCP Family Medicine; Visit Provider Family Medicine
DX: E03.9 Hypothyroidism, unspecified (principal); Z13.29 Encounter for screening for other suspected endocrine disorder
CPT/HCPCS: 36415; 84439; 84443; 84480

== ENCOUNTER 2023-03-08 08:05 | Outpatient (CLI) | payer MEDICARE, SELFPAY ==
[2023-03-08 21:44] LABS: Thyroid Stimulating Hormone Reflex 0.017 uIU/mL (0.465-4.68)
[2023-03-08 22:13] LABS: Free T4 Free Thyroxine Reflex 0.98 ng/dL (0.78-2.19)
[2023-03-08 23:04] LABS: Total Triiodothyronine (T3) 1.01 NG/ML (0.97-1.69)
== END 2023-03-08 08:06 | disposition home or self-care (01) ==
LOC: ANHGOSHLAB 08:07
PROVIDERS: PCP Family Medicine; Visit Provider Family Medicine
DX: E03.9 Hypothyroidism, unspecified (principal)
CPT/HCPCS: 36415; 84439; 84443; 84480

== ENCOUNTER 2023-04-05 08:33 | Outpatient (CLI) | payer MEDICARE, SELFPAY ==
[2023-04-05 20:09] LABS: Thyroid Stimulating Hormone Reflex 0.048 uIU/mL (0.465-4.68)
[2023-04-05 22:06] LABS: Free T4 Free Thyroxine Reflex 1.08 ng/dL (0.78-2.19)
[2023-04-05 22:54] LABS: Total Triiodothyronine (T3) 1.02 NG/ML (0.97-1.69)
== END 2023-04-05 08:34 | disposition home or self-care (01) ==
LOC: ANHGOSHLAB 08:35
PROVIDERS: PCP Family Medicine; Visit Provider Family Medicine
DX: Z13.29 Encounter for screening for other suspected endocrine disorder (principal); E03.9 Hypothyroidism, unspecified
CPT/HCPCS: 36415; 84439; 84443; 84480

== ENCOUNTER 2023-05-22 09:29 | Outpatient (CLI) | payer MEDICARE, SELFPAY ==
[2023-05-22 12:21] LABS: Thyroid Stimulating Hormone Reflex 0.912 uIU/mL (0.465-4.68)
[2023-05-22 12:25] LABS: Alanine Aminotransferase 30 U/L (6-50); Albumin Level 4.7 g/dL (3.5-5.1); Alkaline Phosphatase 59 U/L (38-126); Anion Gap 9 mmol/L (8-16); Aspartate Amino Transferase 27 U/L (17-59); Bilirubin,Total 0.5 mg/dL (0.2-1.3); Blood Urea Nitrogen 29 mg/dL (9-20); Carbon Dioxide 25 mmol/L (22-30); Chloride 107 mmol/L (98-107); Cholesterol 153 mg/dL (0-200); Estimated Glomerular Filt Rate 48; Glucose 104 mg/dL (65-110); HDL Direct 40 mg/dL; Potassium 4.6 mmol/L (3.4-5.0); Sodium 141 mmol/L (137-145); Triglycerides 135 mg/dL (<150)
[2023-05-22 12:36] LABS: LDL Cholesterol Direct 87 mg/dL
== END 2023-05-22 09:30 | disposition home or self-care (01) ==
PROVIDERS: PCP Family Medicine; Visit Provider Family Medicine
DX: E03.9 Hypothyroidism, unspecified (principal); Z13.29 Encounter for screening for other suspected endocrine disorder; Z13.228 Encounter for screening for other metabolic disorders; E78.2 Mixed hyperlipidemia
CPT/HCPCS: 36415; 80053; 80061; 84443

== ENCOUNTER 2023-11-13 15:20 | Outpatient (CLI) | payer MEDICARE, SELFPAY ==
--- NOTE | ~2023-11-13 | XR_ITS ---
EXAMINATION: XR shoulder LT min 2V DATE: 11/13/2023 15:38 INDICATION: Left shoulder pain TECHNIQUE: AP internally and externally rotated, AP oblique externally rotated and axillary views of the left shoulder were obtained. COMPARISON: None FINDINGS: Normal alignment. No fracture. Glenohumeral joint is normal. Mild to moderate acromioclavicular oste oarthritis with small inferiorly directed osteophytes at the lateral head of the clavicle. Sclerotic bone island at the inferior glenoid. Soft tissues are unremarkable. Visualized portion of the lungs a re clear. Median sternotomy wires and aortic valve repair. 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 Reviewed, dictated and finalized at location A. K MACHINE OPERATOR
== END 2023-11-13 15:21 ==
PROVIDERS: PCP Family Medicine; Visit Provider Family Medicine
DX: M19.012 Primary osteoarthritis, left shoulder (principal)
CPT/HCPCS: 73030

== ENCOUNTER 2023-12-18 14:30 | Outpatient (RCR) | payer MEDICARE, SELFPAY ==
--- NOTE | 2023-11-21 16:46 | OPREHPOC ---
Outpatient Therapy Plan of Care This is a Multidisciplinary Plan of Care that may contain components documented by all disciplines (PT, OT, and ST.) PT Problem 1 PT Problem #1 Knowledge Deficit PT Goal 1 Goal Pt to be IND with issued HEP Target Visit 8 PT Problem 2 PT Problem #2 Pain PT Goal 1 Goal Pt to report pain no greater than 3/10 in the last week. Target Visit 8 PT Goal 2 Goal Pt to report 75% improvement in overall symptoms. Target Visit 8 PT Problem 3 PT Problem #3 Impaired Range of Motion PT Goal 1 Goal Pt to improve active shoulder flexion and abduction to 150 deg, each Target Visit 8 PT Problem 4 PT Problem #4 Impaired Strength PT Goal 1 Goal Pt to improve L shoulder strength to grossly 4+/5 without an increase in pain. Target Visit 8 PT Goal 2 Goal Pt to be able to demonstrate 5lb overhead press without compensations. Target Visit 8
--- NOTE | 2023-11-21 16:46 | PTOPEVAL1 ---
Assessment and note entered by Toya Saravia, PT, DPT Evaluation Information Assessment Status Evaluation Diagnosis L shoulder pain Onset 3 weeks Subjective Information Pt states a sudden onset of L shoulder pain for the last 3 weeks without a HARI. He states his ROM and pain has improved in the last couple of weeks. He states reaching out, carrying things, and getting dressed all still cause him some discomfort. Reported Pain Level Pain Score 0: Self Report Assessment PT Clinical Summary Nick presents to therapy today for his initial evaluation with a diagnosis of L shoulder pain. Today he demonstrates decreased L active shoulder motion compared to his R, decreased active strength, pain with resistance, and rests in a guarded position. Pt demonstrates positive RTC irritation and impingement symptoms. Skilled therapy services are indicated to address the deficits noted above, to manage pain, and to return to PLOF. Plan of Care Interventions Electrical Stimulation,Hot Pack/Cold Pack,Manual Therapy,Neuro Re-education,Patient/Caregiver Educati,Therapeutic Activities,Therapeutic Exercise PT Services Indicated Yes Treatment Frequency and 1-2x/wk for 8 visits Duration These treatments will address the objective and functional deficits as defined above. The patient will be advanced safely and appropriately in order for the patient to progress towards his/her prior level of function. Additional exercises will be introduced and as well as a comprehensive home exercise program upon discharge, if needed, ?to ensure carryover of functional gains achieved in the clinic. This treatment plan has been reviewed and agreement upon by the patient.
--- NOTE | 2023-12-18 15:13 | PTOPDC ---
Assessment and note entered by Toya Saravia, PT, DPT Evaluation Information Assessment Status Discharge Diagnosis L shoulder pain Onset 3 weeks Subjective Information Pt states it feels like his shoulder has improved since starting therapy, he states the progress is just really slow. He states he feels like he had a minor set back in the last 2 days, he states he might have slept on it wrong. He states the joint pain in his shoulder has improved almost completely, he states a majority of his pain is along the deltoid and biceps muscle belly. Pt reports catching pain in lateral arm is 9-10/10 at worse. Reported Pain Level Pain Score 0: Self Report Assessment PT Clinical Summary Nick presents to therapy today for his progress report following 8 visits of skilled therapy to treat his diagnosis of L shoulder pain. Today he demonstrates improved active ROM and improved pain reports from his shoulder joint. He continues to get sharp and catching pains when moving in certain planes of motion. He states he would like to continue his HEP IND and will follow up with his doctor. Recommended he call about getting an ortho consult d/t pain and symptoms reports.
== END 2023-12-18 15:26 | disposition home or self-care (01) ==
LOC: ANHGOSHPT 14:30
PROVIDERS: PCP Family Medicine; Visit Provider Family Medicine
DX: M25.512 Pain in left shoulder (principal)
CPT/HCPCS: 97014; 97110; 97112; 97140; 97161; 97530; G0283

== ENCOUNTER 2024-01-12 09:06 | Outpatient (CLI) | payer MEDICARE, SELFPAY ==
--- NOTE | ~2024-01-12 | MR_ITS ---
EXAMINATION: MR shoulder LT wo con DATE: 01/12/2024 10:09 INDICATION: Left shoulder and arm pain TECHNIQUE: Magnetic resonance imaging (MRI) of the left shoulder was performed without intravenous co ntrast. Sequences included axial PD-weighted FS FSE, coronal oblique PD-weighted FS FSE, coronal obli que T2-weighted FS FSE, sagittal PD-weighted FS FSE, and sagittal T1-weighted SE. COMPARISON: Radiographs dated 11/13/2023 FINDINGS: Coracoacromial arch: The acromion undersurface is flat in morphology (type I). The coracoacromial ligament is normal. Mode rate to severe acromioclavicular osteoarthritis. Rotator cuff: Severe supraspinatus and moderate infraspinatus and subscapularis tendinopathy without discrete tear. The teres minor tendon is normal. Normal rotator cuff muscle bulk and signal. Biceps tendon, glenoid labrum and glenohumeral cartilage: Long head of the biceps tendon is normal. There is a small tear at the 11:30-12:30 position of the callejas perior glenoid labrum. There is mild glenoid hypoplasia with insufficiency of the posterior inferior glenoid rim were demonstrates a medially sloped contour and with corresponding hypertrophy of the pos terosuperior glenoid labrum. There is linear increased signal at the base of the 7:00 position of the posterior inferior glenoid labrum which remains of less than fluid intensity which versus the cartil age underlying the labrum. Glenohumeral cartilage is normal. Fluid: Physiologic amount of fluid in the glenohumeral joint and biceps tendon sheath. No loose osteochondr al bodies. Small amount of fluid in the subacromial/subdeltoid bursa consistent with mild bursitis. Bones: Normal marrow signal with no edema, fracture or abnormal marrow replacing process. IMPRESSION: 1. Severe supraspinatus and moderate infraspinatus and subscapularis tendinopathy without tear. 2. Small SLAP tear at the superior glenoid labrum and possible small tear at the posterior inferior g lenoid with associated mild posterior inferior glenoid dysplasia. 3. 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 4. Mild subacromial/subdeltoid bursitis. Reviewed, dictated and finalized at location B. IMPRESSION: 1. Severe supraspinatus and moderate infraspinatus and subscapularis tendinopat hy without tear. 2. Small SLAP tear at the superior glenoid labrum and possible small tear at th e posterior inferior glenoid with associated mild posterior inferior glenoid dy splasia. 3. 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 4. Mild subacromial/subdeltoid bursitis.
== END 2024-01-12 09:07 ==
LOC: GOSHIMG 09:07
PROVIDERS: PCP Family Medicine; Visit Provider Family Medicine
DX: M24.812 Other specific joint derangements of left shoulder, not elsewhere classified (principal); M75.22 Bicipital tendinitis, left shoulder; S43.432A Superior glenoid labrum lesion of left shoulder, initial encounter; M19.012 Primary osteoarthritis, left shoulder; M75.52 Bursitis of left shoulder; X58.XXXA Exposure to other specified factors, initial encounter
CPT/HCPCS: 73221

== ENCOUNTER 2024-05-13 11:52 | Outpatient (CLI) | payer MEDICARE, SELFPAY ==
[2024-05-13 15:31] LABS: Free T4 Free Thyroxine 0.77 ng/mL (0.78-2.19)
[2024-05-13 15:41] LABS: Free T4 Free Thyroxine 0.85 ng/mL (0.78-2.19); Vitamin D 25 Hydroxy 63.8 ng/mL
[2024-05-13 18:55] LABS: Alanine Aminotransferase 26 U/L (6-50); Albumin Level 4.6 g/dL (3.5-5.1); Alkaline Phosphatase 73 U/L (38-126); Anion Gap 11 mmol/L (4-12); Aspartate Amino Transferase 37 U/L (17-59); Bilirubin,Total 0.5 mg/dL (0.2-1.3); Blood Urea Nitrogen 31 mg/dL (9-20); Calcium 9.7 mg/dL (8.4-10.2); Carbon Dioxide 24 mmol/L (22-30); Chloride 104 mmol/L (98-107); Cholesterol 130 mg/dL (0-200); Estimated Glomerular Filt Rate 57; Glucose 96 mg/dL (65-110); HDL Direct 50 mg/dL; Potassium 4.2 mmol/L (3.4-5.0); Sodium 139 mmol/L (137-145); Triglycerides 66 mg/dL (<150)
[2024-05-13 19:05] LABS: LDL Cholesterol Direct 63 mg/dL
[2024-05-13 19:25] LABS: Thyroid Stimulating Hormone 0.681 uIU/mL (0.465-4.680)
[2024-05-13 20:35] LABS: Thyroid Stimulating Hormone 0.735 uIU/mL (0.465-4.680)
== END 2024-05-13 11:53 | disposition home or self-care (01) ==
LOC: ANHGOSHLAB 11:53
PROVIDERS: Nurse Practitioner Family; PCP Family Medicine; Visit Provider Family Medicine
DX: E03.9 Hypothyroidism, unspecified (principal); E78.2 Mixed hyperlipidemia; E55.9 Vitamin D deficiency, unspecified; E53.8 Deficiency of other specified B group vitamins; Z13.21 Encounter for screening for nutritional disorder; Z13.228 Encounter for screening for other metabolic disorders; Z13.29 Encounter for screening for other suspected endocrine disorder
CPT/HCPCS: 36415; 80053; 80061; 82306; 82607; 84439; 84443

== ENCOUNTER 2025-03-06 09:03 | Outpatient (CLI) | payer MEDICARE, SELFPAY ==
--- OUTSIDE RECORDS SUMMARY | 2025-03-06 09:35 | XMS_ITS | Referral Summary ---
Author Organization [facility] [address] Address [address] [place] [address] Care Team Providers Care Federal Mediation Commissioner Name Role Phone Jorge Luis Ibarra DO Primary Care Provider [phone] Allergies No known active allergies Medications lisinopril (PRINIVIL,ZESTR [place]) 40 mg tablet Take one by mouth one time per day 0 0 9 Active multivitamin tablet tablet Take according to gvnu-bsr-thihak r package directions 0 0 9 Active levothyroxine (SYNTHROID, LEVOTHROID) 75 mcg tablet Take 1 tablet (75 mcg total) by mouth daily Active tamsulosin (FLOMAX) 0.4 mg extended release capsule Take 1 capsule (0.4 mg total) by mouth 2 (two) times a day Active cholecalciferol (VITAMIN D-3) 400 unit capsule daily Active hzhvd-6-pyc-epa -dpa-fish oil 1,050-1,200 mg capsule 1 capsule daily Acti ve b complex vitamins tablet Take 1 tablet by mouth daily Active amLODIPine (NORVASC) 10 mg tablet Take 1 tablet (10 mg total) by mouth nightly Active atorvastatin (LIPITOR) 20 mg tablet Take 2 tablets (40 mg total) by mouth nightly 9 Active aspirin 81 mg chewable tablet Take 1 tablet (81 mg total) by mouth daily 9 Active potassium chloride ER (KLOR-CON,K-DUR ) 20 mEq CR tablet Take 1 tablet (20 mEq total) by mouth daily 7 tablet 9 Active gemfibrozil (LOPID) 600 mg tablet Take 1 tablet (600 mg total) by mouth 2 (two) times a day before breakfast and lunch Active coenzyme Q10 100 mg capsule Take 1 capsule (100 mg total) by mouth daily Active clopidogreL (PLAVIX) 75 mg tablet 2 Active Active Problems Problem Noted Date Diagnosed Date H/O prosthetic aortic valve replacement 02/27/20 19 Aftercare following surgery of the circulatory s ystem 01/29/2019 Nonrheumatic aortic valve stenosis 12/07/2017 Non-toxic multinodular goiter 02/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 Overview (01/05/2017): NONTOX MULTINODUL GOITER Social History Tobacco Use Types Packs/Day Years Used Date Smoking Tobacco: Never Smokeless Tobacco: Never Tobacco Cessation:Counseling Given: Not Answered Alcohol Use Standard Drinks/Week Comments Yes 5 (1 standard drink = 0.6 oz pur e alcohol) Sex and Gender Information Value Date Recorded Sex Assigned at Male 12/10/2018 5:17 PM CDT Legal 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 Gender Identity Male 03/10/2020 7:06 AM CDT Sexual Orientation Not on file Last Filed Vital Signs Vital Sign Reading Time Taken Comments Blood Pressure 130/64 03/05/2024 9:53 AM CDT Pulse 79 03/05/2024 9:53 AM CDT Temperature 36.2 C (97.2 F) 01/25/2019 3:03 PM CDT Respiratory Rate 18 01/29/2019 8:20 AM CDT Oxygen Saturation 95% 03/05/2024 9:53 AM CDT Inhaled Oxygen Concentration - - Weight 97.8 kg (215 lb 9.6 oz) 03/05/2024 9:53 A M CDT Height 185.4 cm (6' 1) 03/05/2024 9:53 AM CDT Body Mass Index 28.44 03/05/2024 9:53 AM CDT Plan of Treatment Not on file Medical Devices Implanted Type Area Brush Polisher Device Identifier Shelf Expiration Date Model / Serial / Lot [employer] [id number] Becky-Nicolas ds Perimount Magna Ease Thermafix 25mm - [id number] - [id number] Implanted:Qty: 1 on 12/24/2018 by Vineet Garcia MD at [facility] N/A: Aortic Valve [employer] 07/21/2022 [id number] / [id number] / 0000 Insurance MEDICARE [employer] MEDICARE COMMERCIAL GENERIC MEDICARE [facility] [id number] [place] * Guarantor: RAEGANVIANEY Khan Account Type Relation to Patient Date of Phone Billing Address Personal/Family Advance Directives For more information, please contact: [phone] * Full Code (Latest Code Status on File) Date Activated Date Inactivated Comments 12/29/2018 9:53 PM * Full Code Date Activated Date Inactivated Comments 12/24/2018 11:22 AM 12/28/2018 3:41 PM Care Teams Federal Mediation Commissioner Relationship Specialty Start Date End Date Jorge Luis Ibarra DO PCP - General Family Medicine 02/28/23
--- OUTSIDE RECORDS SUMMARY | 2025-03-06 09:35 | XMS_ITS | Clinical Summary ---
Author Organization [facility] [address] Address [address] [place] [address] Care Team Providers Care Carpenter Inspector Name Role Phone Jorge Luis Ibarra DO Primary Care Provider [phone] Allergies No known active allergies Medications lisinopril (PRINIVIL,ZESTR [place]) 40 mg tablet Take one by mouth one time per day 0 0 9 Active multivitamin tablet tablet Take according to npco-yza-mpptqw r package directions 0 0 9 Active levothyroxine (SYNTHROID, LEVOTHROID) 75 mcg tablet Take 1 tablet (75 mcg total) by mouth daily Active tamsulosin (FLOMAX) 0.4 mg extended release capsule Take 1 capsule (0.4 mg total) by mouth 2 (two) times a day Active cholecalciferol (VITAMIN D-3) 400 unit capsule daily Active ydemv-0-xie-epa -dpa-fish oil 1,050-1,200 mg capsule 1 capsule [...] goiter 02/15/2014 Overview (01/05/2017): NONTOX MULTINODUL GOITER Surgical History Surgery Date Site/Laterality Comments HERNIA REPAIR ROTATOR CUFF REPAIR CATARACT EXTRACTION AORTIC VALVE REPLACEMENT 12/24/2018 Medical History Medical History Date Comments Hypertension Hyperlipidemia Cataract Asthma Enlarged prostate Aortic stenosis Disorder of thyroid Hypothyroidi sm Hypothyroidism Family History Medical History Relation Name Comments Other Brother accidental deat h Heart attack Father Estrada Figueroa Other Other No family histo ry of Cancer; Other Sister complication of bypass Relation Name Status Comments Brother (Age 32) Father Estrada Figueroa (Age 55) Mother Alive Other Sister (Age 70) Social History Tobacco Use Types Packs/Day Years Used Date Smoking Tobacco: Never Smokeless Tobacco: Never Tobacco Cessation:Counseling Given: Not Answered Alcohol Use Standard Drinks/Week Comments Yes 5 (1 standard drink = 0.6 oz pur e alcohol) Sex and Gender Information Value Date Recorded Sex Assigned at Male 12/10/2018 5:17 PM CDT 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 Gender Identity Male 03/10/2020 7:06 AM CDT Sexual Orientation Not on file Obstetrics History Last Filed Vital Signs Vital Sign Reading [...] 03/05/2024 9:53 AM CDT Plan of Treatment Health Maintenance Due Date Last Done Comments Depression Screening 1937 DTaP/Tdap/Td Vaccine (1 - Tdap) 1948 Hepatitis B Screening 1955 Zoster Vaccine (1 of 2) 1987 Well Visit 65+ 2002 Pneumococcal vaccine 65+ (2 of 2 - PPSV23) 06/15/2016 06/15/2015 Fall Risk Assessment 03/27/2019 03/27/2018 Influenza Vaccine (Season Ended) 2025 06/11/2019, 06/25/2018, 07/20/2017, Additional history exists Medical Devices Implanted Type Area Production Supervisor Device Identifier Shelf Expiration Date Model / Serial / Lot [employer] [id number] Becky-Nicolas ds Perimount Magna Ease Thermafix 25mm - [id number] - [id number] Implanted:Qty: 1 on 12/24/2018 by Vineet Garcia MD at [facility] N/A: Aortic Valve [employer] 07/21/2022 [id number] / [id number] / 0000 [place] [address] A[employer] MEDICARE [facility] MEDICARE [facility] [id number] [place] [id number] * Guarantor: VIANEY FIGUEROA Account Type Relation to Patient Date of Phone Billing Address Personal/Family Advance Directives For more information, please contact: [phone] * Full Code (Latest Code Status on File) Date Activated Date Inactivated Comments 12/29/2018 9:53 PM * Full Code Date Activated Date Inactivated Comments 12/24/2018 11:22 AM 12/28/2018 3:41 PM Care Teams Carpenter Inspector Relationship Specialty Start Date End Date Jorge Luis Ibarra DO PCP - General Family Medicine 02/28/23
[2025-03-06 13:37] LABS: Alanine Aminotransferase 20 U/L (6-50); Albumin Level 4.8 g/dL (3.5-5.1); Alkaline Phosphatase 50 U/L (38-126); Anion Gap 11 mmol/L (4-12); Aspartate Amino Transferase 61 U/L (17-59); Bilirubin,Total 0.7 mg/dL (0.2-1.3); Blood Urea Nitrogen 22 mg/dL (9-20); Calcium 10.3 mg/dL (8.4-10.2); Carbon Dioxide 24 mmol/L (22-30); Chloride 107 mmol/L (98-107); Cholesterol 156 mg/dL (0-200); Estimated Glomerular Filt Rate 55; Glucose 103 mg/dL (65-110); HDL Direct 45 mg/dL; LDL Cholesterol Direct 66 mg/dL; Potassium 4.3 mmol/L (3.4-5.0); Sodium 142 mmol/L (137-145); Total Protein 7.6 g/dL (6.3-8.2); Triglycerides 131 mg/dL (<150)
[2025-03-06 14:31] LABS: Hepatitis C Virus Antibody Negative (Negative)
[2025-03-06 14:44] LABS: Creatinine Urine 75.7 mg/dL; Hemoglobin A1C 5.4 % (<5.7); MALB Creatinine Ratio 9.4 mg/g (0-30); Microalbumin Urine Random 7.1 mg/L (0-16.7)
== END 2025-03-06 09:04 | disposition home or self-care (01) ==
PROVIDERS: PCP Family Medicine; Visit Provider Family Medicine
DX: E78.2 Mixed hyperlipidemia (principal); I10 Essential (primary) hypertension; Z13.1 Encounter for screening for diabetes mellitus; Z11.59 Encounter for screening for other viral diseases
CPT/HCPCS: 36415; 80053; 80061; 82043; 83036; 86803